=== PATIENT | male | born 1945 | race Caucasian/White ===

== ENCOUNTER 2022-05-25 16:36 | Inpatient (IN) ==
--- NOTE | 2022-05-25 16:49 | Emergency Department Note ---
SOB HPI <Emily Medrano, DO - Last Filed: 05/25/22 18:51> General Chief Complaint: Shortness of Breath/Dyspnea Stated Complaint: SOB Time Seen by Provider: 05/25/22 16:46 Source: patient Mode of arrival: ambulatory Limitations: no limitations and other (Patient does not appear to be dyspneic while seated and speaking. Speaks in full sentences.) History of Present Illness HPI Narrative: Narrative: Patient presents to the emerged part with complaint of shortness of breath. He has a history of COPD and sleep apnea. He reports he does not use a CPAP machine as he does not know how to use it. He has not use any of his COPD but the medications for this. He does report that he has been having trouble breathing for about a month and is getting much worse over the last couple of days. He said he has had trouble sleeping last couple nights but he denies any orthopnea. He does complain of bilateral lower extremity swelling. He denies any fever, chills, nausea, vomiting, diarrhea, dysuria, increased urinary frequency. Denies abdominal pain, chest pain. He is able while seated to speak in full sentences without difficulty. Just moving up from the wheelchair into the gurney though he did become short of breath. He reports at home his about 15 feet from his bedroom to the bathroom and that that distance gets very short of breath. He reports that he had an echocardiogram performed 1 day prior here at this facility. He is not currently on any diuretics. He denies previous history of UT or congestive heart failure. Related Data Home Medications Medication Instructions Recorded Confirmed simvastatin 20 mg tablet 20 mg PO HS 09/17/17 05/25/22 acetaminophen 325 mg tablet 325 mg PO ONCE PRN Pain 03/21/19 05/25/22 blood sugar diagnostic (Accu-Chek #10 ea 03/21/19 05/25/22 Starr Plus test strips) fluoxetine 10 mg capsule 10 mg PO QDAY 03/21/19 05/25/22 miconazole nitrate 2 % topical 1 applic topical BID 03/21/19 05/25/22 cream Previous Rx's Medication Instructions Recorded tamsulosin 0.4 mg capsule 0.4 mg PO BIDWMEAL #180 caps 08/03/20 Allergies Allergy/AdvReac Type Severity Reaction Status Date / Time lanolin Allergy Unknown Unknown Verified 05/25/22 16:38 tree nut Allergy Unknown Unknown Verified 05/25/22 16:38 nuts Allergy Unknown Unknown Uncoded 08/03/20 14:28 Review of Systems <Emily Medrano DO - Last Filed: 05/25/22 18:51> ROS ROS Narrative: Narrative: Please see HPI for pertinent positives and negatives for review of systems. All systems ED: reviewed and negative except as stated. PFSH <Emily Medrano DO - Last Filed: 05/25/22 18:51> Narrative Patient History Narrative: Narrative: Medical/Surgical/Family History All Active Problems (Updated 05/25/22 @ 18:51 by Emily Medrano DO) Postprandial distress syndrome (Acute) Obstructive sleep apnea (Acute) Leg edema, left (Acute) COPD (chronic obstructive pulmonary disease) (Acute) Cellulitis (Acute) Obstructive sleep apnea (Acute) Respiratory failure with hypoxia (Acute) Dependent edema (Acute) BPH w urinary obs/LUTS (Acute) Allergic conjunctivitis (Acute) Skin rash (Chronic) Hypertension (Chronic) Pedophilia (Chronic) Obesity (Chronic) Benign essential hypertension (Chronic) COLD (chronic obstructive lung disease) (Chronic) Umbilical hernia (Chronic) Insomnia (Chronic) Gastroesophageal reflux disease (Chronic) Low back pain (Chronic) Sensorineural hearing loss of combined types, bilateral (Chronic) Gout (Chronic) Personality disorder (Chronic) Anxiety (Chronic) Depressive disorder (Chronic) Diabetes mellitus (Chronic) Fatigue (Chronic) Diaphragmatic hernia (Chronic) Schatzki's ring (Chronic) MAXIMO (obstructive sleep apnea) (Chronic) Tinea cruris (Chronic) Squamous cell carcinoma of skin (Chronic) Benign prostatic hyperplasia without lower urinary tract symptoms (Chronic) Elevated PSA (Chronic) Acute exacerbation of chronic obstructive airways disease (Acute) Medical History (Updated 05/25/22 @ 18:51 by Emily Medrano DO) Acute exacerbation of chronic obstructive airways disease Anxiety Benign essential hypertension Benign prostatic hyperplasia without lower urinary tract symptoms COLD (chronic obstructive lung disease) Depressive disorder Diabetes mellitus Diaphragmatic hernia Elevated PSA Fatigue Gastroesophageal reflux disease Gout Hyperlipidemia Hypertension Insomnia Low back pain Obesity MAXIMO (obstructive sleep apnea) Pedophilia Personality disorder borderline and narcissistic features Schatzki's ring Sensorineural hearing loss of combined types, bilateral Skin rash Squamous cell carcinoma of skin Tinea cruris Umbilical hernia Surgical History History of colonoscopy (2014) Family History Other HTN (hypertension) Social History Smoking Status: Former smoker Alcohol Intake Frequency: does not drink Substance Use: does not use Exam <Emily Medrano DO - Last Filed: 05/25/22 18:51> Narrative Narrative: Narrative: General Limitations: no limitations and other (Patient does not appear to be dyspneic while seated and speaking. Speaks in full sentences.) General appearance: Present alert, in distress (Hypoxic with tachypnea.) and ob alena Head Head: Present atraumatic, normocephalic and normal inspection Eye Eye: Present normal appearance and EOMI; Absent scleral icterus or conjunctival injection ENT ENT: Present normal exam, normal oropharynx, mucous membranes moist and normal external ear exam Neck Neck: Present normal inspection, full ROM and trachea midline Chest Chest: Present normal inspection and symmetric chest wall rise Respiratory Respiratory: Present respiratory distress (Mild), prolonged expiratory phase and decreased breath sounds (Diffuse, with minimal movement.); Absent rales/crackles, wheezes, stridor or accessory muscle use Cardiovascular Cardiovascular: Present regular rate, normal rhythm and normal heart sounds Adbominal Abdominal: Present soft, hypoactive bowel sounds and other (Morbidly obese abdomen.); Absent distention, tenderness, guarding, rebound or rigidity Rectal Rectal: Present deferred : Present other (Deferred.) Extremities Extremities: Present normal inspection, pedal edema (1+ pitting bilaterally. Tissues are tight.) and pretibial edema (1+ pitting bilaterally, tissues tight.); Absent tenderness, joint swelling or cyanosis Neurological Neurological: Present alert, oriented X3 and CN II-XII intact Psychiatric Psychiatric: Present anxious (Mildly), serious, polite and pleasant Skin Skin: Present warm (WNL), dry and normal color Course <Emily Medrano DO - Last Filed: 05/25/22 18:51> Course Course Narrative: 182: ADRIÁN Chapa advises that patient walked back from the bathroom and was 83% on room air when he reached room. Put her back on the gurney and within a minute he was at 89 and 90%. However he is becoming hypoxic with ambulation. I think he is likely best served with admission. Still pending labs at this time. 183: Spoke with the ED charge nurse and advised her of the need to admit patient. She will work with the hothouse worker and see if we have a bed a vailable and get back to me. 1900: Care of patient transferred to Dr. Brownlee, oncoming ED physician all pending remainder of labs and COVID screening. ED nurse supervisor sample preparation is aware that I would like to admit this patient. Final diagnosis and disposition per Dr. Brownlee. Reevaluation(s) Reevaluation #1: Reevaluated, patient observed walking back from the bathroom which is approximately 60 feet from his room. He was not dyspneic was able to talk the entire distance. He has had some diuresis secondary to the Lasix. I believe he is likely suffering from a COPD exacerbation we will go ahead and start him on a azithromycin. I will give this orally as it is just as bioavailable as IV. Lab values still pending. Time: 18:02 Reevaluation #2: Reevaluated. Patient hypoxic at 83% while resting in bed. If he speaks it drops a little bit lower to 82%. He is placed on nasal cannula and titrated up to 3 L per nasal cannula to maintain oxygen saturation 94%. Advised patient that because of his hypoxic respiratory failure and COPD exacerbation I think he is best served by being admitted to the hospital. He is agreeable with this. I will order COVID screening. Time: 18:31 Vital Signs Vital signs: Vital Signs Temperature 97 F 05/25/22 16:40 Pulse Rate 62 05/25/22 16:40 Respiratory Rate 24 H 05/25/22 16:40 Blood Pressure 189/92 05/25/22 16:40 Pulse Oximetry (%) 86 L 05/25/22 16:40 Oxygen Delivery Method 05/25/22 16:40 Temperature 97 F 05/25/22 16:40 Pulse Rate 66 05/25/22 19:42 Respiratory Rate 21 05/25/22 19:42 Blood Pressure 168/76 05/25/22 18:31 Pulse Oximetry (%) 87 L 05/25/22 19:42 Oxygen Delivery Method 05/25/22 19:42 Oxygen Flow Rate (L/min) 3 05/25/22 19:42 <Taco Brownlee MD - Last Filed: 05/25/22 19:54> Consultations Consultation #1: I spoke to the hospitalist, Dr. Shearer. He agreed to admit this patient. Time: 19:53 Vital Signs Vital signs: Vital Signs Temperature 97 F 05/25/22 16:40 Pulse Rate 62 05/25/22 16:40 Respiratory Rate 24 H 05/25/22 16:40 Blood Pressure 189/92 05/25/22 16:40 Pulse Oximetry (%) 86 L 05/25/22 16:40 Oxygen Delivery Method 05/25/22 16:40 Temperature 97 F 05/25/22 16:40 Pulse Rate 66 05/25/22 19:42 Respiratory Rate 21 05/25/22 19:42 Blood Pressure 168/76 05/25/22 18:31 Pulse Oximetry (%) 87 L 05/25/22 19:42 Oxygen Delivery Method 05/25/22 19:42 Oxygen Flow Rate (L/min) 3 05/25/22 19:42 [facility] <Emily Medrano, DO - Last Filed: 05/25/22 18:51> [facility] Narrative Medical decision making narrative: Narrative: Patient presents emerged part with complaint of dyspnea for the last month but much worse the last 2 days. Please see HPI, physical exam, chart above for further details. On arrival patient did have lower extremity edema that was 1+ pitting and very tense. He does report that he does sit a lot on his computer and plays games. I think this is likely dependent edema as he does not have any evidence of cardiac abnormality on his EKG or his troponin. His BNP is not elevated. As result I think congestive heart failure is unlikely. He was given Decadron 10 mg IV push and DuoNeb 6 mL and his respiratory effort improved. He was able to actually walk all the way from his room (E3) to the bathroom which is approximately 60 feet and return and did not appear to be any respiratory distress I was able to speak in full sentences did not appear to have any increased work of breathing. However, he would desat to 83% when he got back on the monitor at the bedside. Placing him on 3 L per nasal cannula when getting back to 94%. He did receive DuoNeb 6 mL along with his Decadron. I did give him azithromycin 500 mg p.o. is a thought he might turn around we can get him discharged home. He did receive Lasix 40 mg on arrival case this was congestive heart failure. He did have an echocardiac cardiogram performed 1 day prior and there is no report of this at this time. I did review the images and unfortunately I am not certain how to read the echocardiogram appropriately. I think patient best served with admission to the hospital with submental oxygen and further care until he is stable enough to go home. He does have a history of obstructive sleep apnea and has been prescribed a CPAP machine but does not know how to wear it has not been wearing it. His chest x-ray did not show any infiltrate but did show that he has some pulmonary fibrosis. Lab results returned to this point in time show CBC with he will a slight low at 13.5 without a white count and RBCs that are normal. Immature Gran sites are elevated at 1.4% and monocytes are elevated 12.3%. The remainder of the differential is unremarkable. Absolute lymphocytes are low at 1.25. With immature Gran signs elevated at 0.08. VBG obtained did show pH is 7.34 with PCO2 elevated 52.8 slightly likely secondary underlying COPD, PO2 is elevated at 65, bicarb is slightly high at 28.4, total CO2 is slightly elevated 30.0 and venous O2 saturation is elevated at 91.0 with a base excess slightly high at 3.0 and lactic acid is normal at 0.8. I think the majority of the changes in his ABG are secondary to underlying history of COPD and being currently on supplemental oxygen with a drop. Serum chemistry unremarkable except for the BUN is elevated little bit 29 and glucose elevated at 114. Labs pending at the transfer of care include phosphorus, magnesium, total bilirubin, direct bilirubin, AST, ALT alkaline phosphatase, NT proBNP, total protein, albumin, globulin. For troponin high POC is normal at less than 0.02. Repeat troponin has not been ordered as patient has had symptoms for a month and worse last 2 days and does not appear to have an UT. Care patient will be transferred to Dr. Brownlee, [facility] ED physician at 1900 hrs. Final diagnoses and disposition per Dr. Brownlee if I have not already accomplish this by that time. Sepsis Sepsis Identified: No Differential Diagnosis Differential Diagnosis: CHF, UT, COPD exacerbation, PNA, dependent edema Medical Records Medical records reviewed: Yes I reviewed the patient's medical records. Lab Data Lab results reviewed: Yes I reviewed the patient's lab results. Result diagrams: 05/25/22 17:30 Labs: Lab Results 05/25/22 05/25/22 05/25/22 Range/Units 17:24 17:24 17:26 WBC (4.5-11.0) K/mcL RBC (4.63-6.08) M/mcL Hgb (13.7-17.5) g/dL Hct (40.1-51.0) % POC Hct 44.0 (41-55) MCV (80.0-100.0) fL MCH (26.0-34.0) pg MCHC (31.0-36.0) g/dL RDW (11.5-14.5) % Plt Count (140-440) K/mcL MPV (8.8-12.5) fL Immature Gran % (Auto) (0.0-0.5) % Neut % (Auto) (38.0-78.0) % Lymph % (Auto) (15.5-49.0) % [place] % (Auto) (1.0-12.0) % Eos % (Auto) (0.0-7.0) % Baso % (Auto) (0.0-2.0) % Lymph # (Auto) (1.50-4.80) K/mcL [place] # (Auto) (0.10-0.90) K/mcL Eos # (Auto) (0.00-0.70) K/mcL Baso # (Auto) (0.00-0.30) K/mcL Immature Gran # (0.00-0.05) K/mcl Absolute Neutrophils (1.80-8.00) K/mcL POC VBG pH 7.34 (7.32-7.42) POC VBG pCO2 at Temp 52.8 H (41-51) POC VBG pO2 65 H (25-40) POC VBG HCO3 28.4 H (24-28) POC VBG Total CO2 30.0 H (25-29) POC Venous O2 Sat 91.0 H (40-70) POC VBG Base Excess 3.0 H (-2-2) VBG Lactic Acid 0.8 (0.5-2) POC Sodium 137 (133-145) POC Potassium 4.4 (3.3-5.1) POC Chloride 101 (96-108) POC Total CO2 29.0 (22-30) POC BUN 29 H (6-20) POC Creatinine 0.8 (0.6-1.2) POC Glucose 114 H (70-105) POC WB Ioniz Calcium 1.17 (1.16-1.32) Phosphorus (2.5-4.5) mg/dL Magnesium (1.6-2.5) mg/dL Total Bilirubin (0.1-1.0) mg/dL Direct Bilirubin (0-0.3) mg/dL AST (<40) U/L ALT (<40) U/L Alkaline Phosphatase (39-117) U/L NT-Pro-B Natriuret Pep (<450.0) pg/mL Total Protein (5.9-8.4) gm/dL Albumin (3.2-5.2) gm/dL Globulin (2.2-3.7) gm/dL POC Troponin I < 0.02 (0.00-0.08) 05/25/22 05/25/22 Range/Units 17:30 17:30 WBC 5.6 (4.5-11.0) K/mcL RBC 4.64 (4.63-6.08) M/mcL Hgb 13.5 L (13.7-17.5) g/dL Hct 42.6 (40.1-51.0) % POC Hct (41-55) MCV 91.8 (80.0-100.0) fL MCH 29.1 (26.0-34.0) pg MCHC 31.7 (31.0-36.0) g/dL RDW 12.7 (11.5-14.5) % Plt Count 196 (140-440) K/mcL MPV 11.0 (8.8-12.5) fL Immature Gran % (Auto) 1.4 H (0.0-0.5) % Neut % (Auto) 58.2 (38.0-78.0) % Lymph % (Auto) 22.5 (15.5-49.0) % [place] % (Auto) 12.3 H (1.0-12.0) % Eos % (Auto) 4.7 (0.0-7.0) % Baso % (Auto) 0.9 (0.0-2.0) % Lymph # (Auto) 1.25 L (1.50-4.80) K/mcL [place] # (Auto) 0.68 (0.10-0.90) K/mcL Eos # (Auto) 0.26 (0.00-0.70) K/mcL Baso # (Auto) 0.05 (0.00-0.30) K/mcL Immature Gran # 0.08 H (0.00-0.05) K/mcl Absolute Neutrophils 3.23 (1.80-8.00) K/mcL POC VBG pH (7.32-7.42) POC VBG pCO2 at Temp (41-51) POC VBG pO2 (25-40) POC VBG HCO3 (24-28) POC VBG Total CO2 (25-29) POC Venous O2 Sat (40-70) POC VBG Base Excess (-2-2) VBG Lactic Acid (0.5-2) POC Sodium (133-145) POC Potassium (3.3-5.1) POC Chloride (96-108) POC Total CO2 (22-30) POC BUN (6-20) POC Creatinine (0.6-1.2) POC Glucose (70-105) POC WB Ioniz Calcium (1.16-1.32) Phosphorus 4.2 (2.5-4.5) mg/dL Magnesium 2.2 (1.6-2.5) mg/dL Total Bilirubin 0.3 (0.1-1.0) mg/dL Direct Bilirubin < 0.2 (0-0.3) mg/dL AST 17 (<40) U/L ALT 13 (<40) U/L Alkaline Phosphatase 74 (39-117) U/L NT-Pro-B Natriuret Pep 123.5 (<450.0) pg/mL Total Protein 6.5 (5.9-8.4) gm/dL Albumin 3.9 (3.2-5.2) gm/dL Globulin 2.6 (2.2-3.7) gm/dL POC Troponin I (0.00-0.08) ED POC Tests ED POC Tests: JAX - Influenza A Negative JAX - Influenza B Negative JAX - SARS Antigen Negative Radiology Data Radiology results reviewed: Yes I reviewed the patient's radiology results. Radiology results narrative: Portable chest x-ray shows no acute process. Patient does have stable moderate cardiomegaly without any pulmonary vascular congestion or infiltrates. He does appear to have some stable and unchanged pulmonary fibrosis. Please see radiology full report for further details. EKG Data EKG #1: EKG attestation: Yes I reviewed and interpreted this EKG. and Yes There are no EKG findings of acute coronary syndrome EKG results narrative: EKG obtained at 1714 hrs. interpreted by myself at 1717 hrs. shows sinus rhythm with bradycardia 50 bpm. There is left axis deviation. [place] interval is prolonged at 216 ms consistent with first-degree AV block. QRS duration is prolonged 155 ms there is a right bundle branch block present. QT and QTc are borderline prolonged at 447 ms and 4 and 41 ms respectively. T wave is negative in lead III and there is ST elevation in lead III of approximately 3 mm and lead aVF of approximately 1.5 mm there is no ST elevation in lead II. There are T wave inversions of lead V2 and V3. There is wandering baseline noted in the anterior and lateral V leads. 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 I do not have the EKG myself to visualize. No STEMI. <Taco Brownlee MD - Last Filed: 05/25/22 19:54> Lab Data Labs: Lab Results 05/25/22 05/25/22 05/25/22 Range/Units 17:24 17:24 17:26 WBC (4.5-11.0) K/mcL RBC (4.63-6.08) M/mcL Hgb (13.7-17.5) g/dL Hct (40.1-51.0) % POC Hct 44.0 (41-55) MCV (80.0-100.0) fL MCH (26.0-34.0) pg MCHC (31.0-36.0) g/dL RDW (11.5-14.5) % Plt Count (140-440) K/mcL MPV (8.8-12.5) fL Immature Gran % (Auto) (0.0-0.5) % Neut % (Auto) (38.0-78.0) % Lymph % (Auto) (15.5-49.0) % [place] % (Auto) (1.0-12.0) % Eos % (Auto) (0.0-7.0) % Baso % (Auto) (0.0-2.0) % Lymph # (Auto) (1.50-4.80) K/mcL [place] # (Auto) (0.10-0.90) K/mcL Eos # (Auto) (0.00-0.70) K/mcL Baso # (Auto) (0.00-0.30) K/mcL Immature Gran # (0.00-0.05) K/mcl Absolute Neutrophils (1.80-8.00) K/mcL POC VBG pH 7.34 (7.32-7.42) POC VBG pCO2 at Temp 52.8 H (41-51) POC VBG pO2 65 H (25-40) POC VBG HCO3 28.4 H (24-28) POC VBG Total CO2 30.0 H (25-29) POC Venous O2 Sat 91.0 H (40-70) POC VBG Base Excess 3.0 H (-2-2) VBG Lactic Acid 0.8 (0.5-2) POC Sodium 137 (133-145) POC Potassium 4.4 (3.3-5.1) POC Chloride 101 (96-108) POC Total CO2 29.0 (22-30) POC BUN 29 H (6-20) POC Creatinine 0.8 (0.6-1.2) POC Glucose 114 H (70-105) POC WB Ioniz Calcium 1.17 (1.16-1.32) Phosphorus (2.5-4.5) mg/dL Magnesium (1.6-2.5) mg/dL Total Bilirubin (0.1-1.0) mg/dL Direct Bilirubin (0-0.3) mg/dL AST (<40) U/L ALT (<40) U/L Alkaline Phosphatase (39-117) U/L NT-Pro-B Natriuret Pep (<450.0) pg/mL Total Protein (5.9-8.4) gm/dL Albumin (3.2-5.2) gm/dL Globulin (2.2-3.7) gm/dL POC Troponin I < 0.02 (0.00-0.08) 01/19/23 01/19/23 Range/Units 17:30 17:30 WBC 5.6 (4.5-11.0) K/mcL RBC 4.64 (4.63-6.08) M/mcL Hgb 13.5 L (13.7-17.5) g/dL Hct 42.6 (40.1-51.0) % POC Hct (41-55) MCV 91.8 (80.0-100.0) fL MCH 29.1 (26.0-34.0) pg MCHC 31.7 (31.0-36.0) g/dL RDW 12.7 (11.5-14.5) % Plt Count 196 (140-440) K/mcL MPV 11.0 (8.8-12.5) fL Immature Gran % (Auto) 1.4 H (0.0-0.5) % Neut % (Auto) 58.2 (38.0-78.0) % Lymph % (Auto) 22.5 (15.5-49.0) % [place] % (Auto) 12.3 H (1.0-12.0) % Eos % (Auto) 4.7 (0.0-7.0) % Baso % (Auto) 0.9 (0.0-2.0) % Lymph # (Auto) 1.25 L (1.50-4.80) K/mcL [place] # (Auto) 0.68 (0.10-0.90) K/mcL Eos # (Auto) 0.26 (0.00-0.70) K/mcL Baso # (Auto) 0.05 (0.00-0.30) K/mcL Immature Gran # 0.08 H (0.00-0.05) K/mcl Absolute Neutrophils 3.23 (1.80-8.00) K/mcL POC VBG pH (7.32-7.42) POC VBG pCO2 at Temp (41-51) POC VBG pO2 (25-40) POC VBG HCO3 (24-28) POC VBG Total CO2 (25-29) POC Venous O2 Sat (40-70) POC VBG Base Excess (-2-2) VBG Lactic Acid (0.5-2) POC Sodium (133-145) POC Potassium (3.3-5.1) POC Chloride (96-108) POC Total CO2 (22-30) POC BUN (6-20) POC Creatinine (0.6-1.2) POC Glucose (70-105) POC WB Ioniz Calcium (1.16-1.32) Phosphorus 4.2 (2.5-4.5) mg/dL Magnesium 2.2 (1.6-2.5) mg/dL Total Bilirubin 0.3 (0.1-1.0) mg/dL Direct Bilirubin < 0.2 (0-0.3) mg/dL AST 17 (<40) U/L ALT 13 (<40) U/L Alkaline Phosphatase 74 (39-117) U/L NT-Pro-B Natriuret Pep 123.5 (<450.0) pg/mL Total Protein 6.5 (5.9-8.4) gm/dL Albumin 3.9 (3.2-5.2) gm/dL Globulin 2.6 (2.2-3.7) gm/dL POC Troponin I (0.00-0.08) ED POC Tests ED POC Tests: JAX - Influenza A Negative JAX - Influenza B Negative JAX - SARS Antigen Negative Discharge Plan Patient/Caregiver Discharge Instructions Pt seen by HEALTHCARE MANAGEMENT/PA only: No Clinical Impression: Acute exacerbation of chronic obstructive airways disease, Obstructive sleep apnea, Respiratory failure with hypoxia, Dependent edema Patient Disposition: Xfer As Inpt ([facility]) Follow up with: Ba Kelsey ARNP [Primary Care Provider] - Prescriptions: No Action (DME) Accu-Chek Starr Plus test strp strip See Rx Instructions .ROUTE .MEDSUPPLY Qty: 10 Rx Instructions: As directed fluoxetine 10 mg capsule 10 mg PO QDAY miconazole nitrate 2 % cream 1 applic TOPICAL BID acetaminophen 325 mg tablet 325 mg PO ONCE PRN (Reason: Pain) simvastatin 20 MG tablet 20 mg PO HS tamsulosin 0.4 mg capsule 0.4 mg PO BIDWMEAL Qty: 180 3RF
[2022-05-25] MEDS ORDERED: ASPIRIN 81 MG TAB.CHEW CHEWED ONE (16:57)
[2022-05-25] MEDS ORDERED: DEXAMETHASONE 10 MG/ML VIAL IV ONE (16:59)
[2022-05-25] MEDS ORDERED: IPRATROPIUM/ALBUTEROL 3 ML AMPUL.NEB NEB ONE (16:59)
[2022-05-25] MEDS ORDERED: FUROSEMIDE 40 MG/4 ML VIAL IV ONE (17:02)
--- NOTE | 2022-05-25 17:19 | XRay Report ---
CLINICAL INFORMATION: Chest pain COMPARISON: 02/23/2022 TECHNIQUE: Portable FINDINGS: Moderate cardiomegaly is unchanged. Mediastinum and pulmonary vessels are normal. Moderate airspace disease in the left base is unchanged from the comparison exam nearly three months prior and likely represents organized fibrosis rather than unresolved infiltrate. There are no new pulmonary abnormalities. Mild atelectasis seen in the right base. No effusions. IMPRESSION: Moderate airspace disease in the left base is unchanged from exam nearly 3 months ago is likely organizing of fibrosis. No acute findings. Moderate stable cardiomegaly Interpreted and Authenticated by: Luis Oakes 05/25/22
[2022-05-25 17:40] LABS: POC Calcium, Ionized 1.17 (1.16-1.32); POC Creatinine 0.8 (0.6-1.2); POC Potassium 4.4 (3.3-5.1)
[2022-05-25] MEDS ORDERED: AZITHROMYCIN 250 MG TABLET PO ONE (18:03)
[2022-05-25 18:35] LABS: Basophils # (Auto) 0.05 K/mcL (0.00-0.30); Basophils % (Auto) 0.9 % (0.0-2.0); Eosinophils # (Auto) 0.26 K/mcL (0.00-0.70); Eosinophils % (Auto) 4.7 % (0.0-7.0); Hematocrit 42.6 % (40.1-51.0); Hemoglobin 13.5 g/dL (13.7-17.5); Lymphocytes # (Auto) 1.25 K/mcL (1.50-4.80); Lymphocytes % (Auto) 22.5 % (15.5-49.0); Mean Cell Volume 91.8 fL (80.0-100.0); Mean Corpuscular HGB Conc 31.7 g/dL (31.0-36.0); Monocytes # (Auto) 0.68 K/mcL (0.10-0.90); Monocytes % (Auto) 12.3 % (1.0-12.0); Neutrophils % (Auto) 58.2 % (38.0-78.0); Platelet Count 196 K/mcL (140-440); RBC 4.64 M/mcL (4.63-6.08); Red Cell Distribution Width 12.7 % (11.5-14.5); WBC 5.6 K/mcL (4.5-11.0)
[2022-05-25 18:50] LABS: proBNP 123.5 pg/mL (<450.0)
[2022-05-25 18:52] LABS: ALT/SGPT 13 U/L (<40); AST/SGOT 17 U/L (<40); Albumin 3.9 gm/dL (3.2-5.2); Alkaline Phosphatase 74 U/L (39-117); Bilirubin,Direct < 0.2 mg/dL (0-0.3); Bilirubin,Total 0.3 mg/dL (0.1-1.0); Globulin 2.6 gm/dL (2.2-3.7); Phosphorous 4.2 mg/dL (2.5-4.5)
--- NOTE | 2022-05-25 19:50 | Internal Med History&Physical ---
HPI History of Present Illness Patient information: Note initiated : 05/25/22 at 7:42 pm Service Date, if different from initiated Date: [] Patient: Andrea Owens a 76 y/o M admitted on for Shortness of breath. Chief Complaint: [] History of present illness: Mr. Owens is a 76 year old M Presents the ED with shortness of breath especially with exertion as well as wheezing and weakness. Is also developed a cough. Patient states he has been short of breath for some time since he started gaining weight last summer. But over the past week has been significantly worse. He can hardly walk across the room. He has had developed a cough productive of mild white sputum. Complains of being wheezy. Weak. Patient states that blood pressures been running high as well. He has a rescue inhaler at home but rarely uses it. He has not seen a pulmono logist in a long time. Patient denies fevers or chills. Patient denies chest pain. Patient states he has been much more sedentary since last summer. He had a recent echocardiogram which showed good EF moderate tricuspid regurgitation right ventricular that was dilated but had good systolic function. And only mild pulmonary hypertension. In the ED was evaluated diagnosed as acute exacerbation COPD. Chest x-ray showed no acute changes but likely pulmonary fibrosis unchanged from previous. He had mild CO2 retention but within normal limits pH on the VBG. Troponin and lactate were unremarkable. Low BNP. Blood pressure was elevated on admit. He dropped to the low 80s in the ED. He was started on antibiotics and nebulizers in the ED. Also given glucocorticoids. Rapid flu and COVID in the ED was negative. Review of Systems: Pertinent positives as above. Denies headache/fever/chills/nausea/vomiting/chest or abdominal pain/diarrhea. Remaining 10 point review of system reviewed negative PFSH PFSH All Active Problems (Updated 05/25/22 @ 18:51 by Emily Medrano DO) Postprandial distress syndrome (Acute) Obstructive sleep apnea (Acute) Leg edema, left (Acute) COPD (chronic obstructive pulmonary disease) (Acute) Cellulitis (Acute) Obstructive sleep apnea (Acute) Respiratory failure with hypoxia (Acute) Dependent edema (Acute) BPH w urinary obs/LUTS (Acute) Allergic conjunctivitis (Acute) Skin rash (Chronic) Hypertension (Chronic) Pedophilia (Chronic) Obesity (Chronic) Benign essential hypertension (Chronic) COLD (chronic obstructive lung disease) (Chronic) Umbilical hernia (Chronic) Insomnia (Chronic) Gastroesophageal reflux disease (Chronic) Low back pain (Chronic) Sensorineural hearing loss of combined types, bilateral (Chronic) Gout (Chronic) Personality disorder (Chronic) Anxiety (Chronic) Depressive disorder (Chronic) Diabetes mellitus (Chronic) Fatigue (Chronic) Diaphragmatic hernia (Chronic) Schatzki's ring (Chronic) MAXIMO (obstructive sleep apnea) (Chronic) Tinea cruris (Chronic) Squamous cell carcinoma of skin (Chronic) Benign prostatic hyperplasia without lower urinary tract symptoms (Chronic) Elevated PSA (Chronic) Acute exacerbation of chronic obstructive airways disease (Acute) Medical History (Updated 05/25/22 @ 18:51 by Emily Medrano DO) Acute exacerbation of chronic obstructive airways disease Anxiety Benign essential hypertension Benign prostatic hyperplasia without lower urinary tract symptoms COLD (chronic obstructive lung disease) Depressive disorder Diabetes mellitus Diaphragmatic hernia Elevated PSA Fatigue Gastroesophageal reflux disease Gout Hyperlipidemia Hypertension Insomnia Low back pain Obesity MAXIMO (obstructive sleep apnea) Pedophilia Personality disorder borderline and narcissistic features Schatzki's ring Sensorineural hearing loss of combined types, bilateral Skin rash Squamous cell carcinoma of skin Tinea cruris Umbilical hernia Surgical History History of colonoscopy (2013) Family History Other HTN (hypertension) Social History marital status: single service: Yes (1 yr [employer] [facility] branch: [employer] smoking status: Former smoker alcohol intake frequency: does not drink substance use type: does not use MEDS/ALLERGIES Home Medications and Allergies Home Medications Medication Instructions Recorded Confirmed Type simvastatin 20 mg tablet 20 mg PO HS 09/17/17 05/25/22 History acetaminophen 325 mg tablet 325 mg PO ONCE PRN Pain 03/21/19 05/25/22 History blood sugar diagnostic (Accu-Chek #10 ea 03/21/19 05/25/22 History Starr Plus test strips) fluoxetine 10 mg capsule 10 mg PO QDAY 03/21/19 05/25/22 History miconazole nitrate 2 % topical 1 applic topical BID 03/21/19 05/25/22 History cream tamsulosin 0.4 mg capsule 0.4 mg PO BIDWMEAL #180 caps 08/03/20 05/25/22 Rx Allergies Allergy/AdvReac Type Severity Reaction Status Date / Time lanolin Allergy Unknown Unknown Verified 05/25/22 16:38 tree nut Allergy Unknown Unknown Verified 05/25/22 16:38 nuts Allergy Unknown Unknown Uncoded 08/03/20 14:28 EXAM Constitutional Vitals: Temp Pulse Resp BP Pulse Ox O2 Del Method O2 Flow Rate 97 F 66 21 168/76 87 L 3 05/25/22 16:40 05/25/22 19:42 05/25/22 19:42 05/25/22 18:31 05/25/22 19:42 05/25/22 19:42 05/25/22 19:42 Exam: General: Alert, Awake, No acute Distress, obese Eyes/N/T: EOMI, PERRL, Head/Neck: neck supple, normocephalic atraumatic CV: RRR, No murmurs, normal s1/s2 Pulm: mild diminished at bases, mild rales left base, Abd: soft, nontender, +BS x4 Ext: no clubbing/cyanosis, b/l LE 1-2+ edema Neuro: Alert, no focal deficits, moves all extremities, CN 2-12 grossly intact, sensations intact b/l upper/lower Skin: warm/dry DATA Data Completed and Pending Labs: Labs from last 24 hours 05/25/22 05/25/22 05/25/22 17:30 17:30 17:26 WBC 5.6 RBC 4.64 Hgb 13.5 L Hct 42.6 POC Hct MCV 91.8 MCH 29.1 MCHC 31.7 RDW 12.7 Plt Count 196 MPV 11.0 Immature Gran % (Auto) 1.4 H Neut % (Auto) 58.2 Lymph % (Auto) 22.5 Whitley % (Auto) 12.3 H Eos % (Auto) 4.7 Baso % (Auto) 0.9 Lymph # (Auto) 1.25 L [place] # (Auto) 0.68 Eos # (Auto) 0.26 Baso # (Auto) 0.05 Immature Gran # 0.08 H Absolute Neutrophils 3.23 POC VBG pH POC VBG pCO2 at Temp POC VBG pO2 POC VBG HCO3 POC VBG Total CO2 POC Venous O2 Sat POC VBG Base Excess VBG Lactic Acid POC Sodium POC Potassium POC Chloride POC Total CO2 POC BUN POC Creatinine POC Glucose POC WB Ioniz Calcium Phosphorus 4.2 Magnesium 2.2 Total Bilirubin 0.3 Direct Bilirubin < 0.2 AST 17 ALT 13 Alkaline Phosphatase 74 NT-Pro-B Natriuret Pep 123.5 Total Protein 6.5 Albumin 3.9 Globulin 2.6 POC Troponin I < 0.02 05/25/22 05/25/22 17:24 17:24 WBC RBC Hgb Hct POC Hct 44.0 MCV MCH MCHC RDW Plt Count MPV Immature Gran % (Auto) Neut % (Auto) Lymph % (Auto) Whitley % (Auto) Eos % (Auto) Baso % (Auto) Lymph # (Auto) Whitley # (Auto) Eos # (Auto) Baso # (Auto) Immature Gran # Absolute Neutrophils POC VBG pH 7.34 POC VBG pCO2 at Temp 52.8 H POC VBG pO2 65 H POC VBG HCO3 28.4 H POC VBG Total CO2 30.0 H POC Venous O2 Sat 91.0 H POC VBG Base Excess 3.0 H VBG Lactic Acid 0.8 POC Sodium 137 POC Potassium 4.4 POC Chloride 101 POC Total CO2 29.0 POC BUN 29 H POC Creatinine 0.8 POC Glucose 114 H POC WB Ioniz Calcium 1.17 Phosphorus Magnesium Total Bilirubin Direct Bilirubin AST ALT Alkaline Phosphatase NT-Pro-B Natriuret Pep Total Protein Albumin Globulin POC Troponin I A/P Narrative A/P Narrative: A: *AECOPD (not on home O2): likely complicated by underlying fibrosis -has not been following with pulmology *Suspected pulonary fiboris: *Acute hypoxic respiratory failure: *MAXIMO: not using home cpap stating he does not tolerate his home mask *Obesity: BMI 38 *Hyperlipidemia: *Anxiety/depression: *DM2: *HTN: not on any home meds P: -O2 supp and wean as able -IS/Acapella, jose roberto nebs, RT -Corticosteroids (wean) -Empiric antibiotics -RVP pending -CT chest to eval for fibrosis -check ddimer -qhs cpap -Monitor BP closely and start appropriate medications as needed, as needed IV -SSI -PT/OT -TEDS -d/c with IH's -f/u with pulmonolgy -ppx: Lovenox Time Spent With Patient Time: Total time spent is greater than 50% in coordination of care (as documented) at patient's floor/unit and/or counseling patient: Initial: Total time with patient: 75 - 90 minutes
[2022-05-25] MEDS ORDERED: ENALAPRILAT 1.25 MG/ML VIAL IV PRN (22:07)
[2022-05-25] MEDS ORDERED: DEXTROSE 31 GM ORAL.SUSP PO PRN (22:07)
[2022-05-25] MEDS ORDERED: SENNOSIDES 1 TABLET PO PRN (22:07)
[2022-05-25] MEDS ORDERED: IPRATROPIUM/ALBUTEROL 3 ML AMPUL.NEB NEB PRN (22:07)
[2022-05-25] MEDS ORDERED: ONDANSETRON 4 MG/2 ML VIAL IV PRN (22:07)
[2022-05-25] MEDS ORDERED: POLYETHYLENE GLYCOL 3350 17 GM PACKET PO PRN (22:07)
[2022-05-25] MEDS ORDERED: DEXTROSE 50% 50 ML VIAL IV PRN (22:07)
[2022-05-25] MEDS ORDERED: POTASSIUM CHLORIDE 20 MEQ TABLET PO PRN ×2 (22:07)
[2022-05-25] MEDS ORDERED: MAGNESIUM SULFATE 2 GM/50 ML BAG IV PRN (22:07)
[2022-05-25] MEDS ORDERED: POTASSIUM CHLORIDE 40 MEQ in DEXTROSE 5% IN WATER 500 ML IV PRN (22:07)
[2022-05-25 22:40] LABS: Hemoglobin A1C 6.8 % Hgb (4.0-6.0)
[2022-05-25] MEDS: 0.9 % SODIUM CHLORIDE 10 ML SYRINGE IV SCH ×2 (23:11→23:35)
[2022-05-25] MEDS: SIMVASTATIN 20 MG TABLET PO SCH (23:12)
[2022-05-25] MEDS: MELATONIN 3 MG TABLET PO SCH (23:12)
[2022-05-25] MEDS: TAMSULOSIN 0.4 MG CAPSULE PO SCH (23:12)
[2022-05-25] MEDS: methylPREDNISolone SOD SUCC 125 MG/2 ML VIAL IV SCH (23:13)
[2022-05-25] MEDS: INSULIN LISPRO 1 UNIT/0.01 ML UNIT SQ SCH (23:14)
[2022-05-25] MEDS: hydrALAZINE 20 MG/ML VIAL IV PRN (23:35)
[2022-05-25] MEDS: BUDESONIDE 0.5 MG/2 ML AMPUL.NEB NEB SCH (23:40)
[2022-05-26] MEDS: TEMAZEPAM 15 MG CAPSULE PO PRN (02:15)
[2022-05-26] MEDS: IPRATROPIUM/ALBUTEROL 3 ML AMPUL.NEB NEB SCH ×4 (02:15→20:25)
[2022-05-26] MEDS: BUDESONIDE 0.5 MG/2 ML AMPUL.NEB NEB SCH ×2 (07:08→20:25)
[2022-05-26] MEDS: methylPREDNISolone SOD SUCC 125 MG/2 ML VIAL IV SCH (07:26)
[2022-05-26] MEDS: 0.9 % SODIUM CHLORIDE 10 ML SYRINGE IV SCH ×4 (07:28→23:39)
[2022-05-26 07:30] LABS: Basophils # (Auto) 0.01 K/mcL (0.00-0.30); Basophils % (Auto) 0.1 % (0.0-2.0); Eosinophils # (Auto) 0 K/mcL (0.00-0.70); Eosinophils % (Auto) 0 % (0.0-7.0); Hematocrit 43.7 % (40.1-51.0); Hemoglobin 13.9 g/dL (13.7-17.5); Lymphocytes # (Auto) 0.39 K/mcL (1.50-4.80); Lymphocytes % (Auto) 5.2 % (15.5-49.0); Mean Cell Volume 91.8 fL (80.0-100.0); Mean Corpuscular HGB Conc 31.8 g/dL (31.0-36.0); Mean Platelet Volume 10.9 fL (8.8-12.5); Monocytes # (Auto) 0.04 K/mcL (0.10-0.90); Monocytes % (Auto) 0.5 % (1.0-12.0); Neutrophils % (Auto) 93.3 % (38.0-78.0); Platelet Count 196 K/mcL (140-440); RBC 4.76 M/mcL (4.63-6.08); Red Cell Distribution Width 12.9 % (11.5-14.5); WBC 7.5 K/mcL (4.5-11.0)
[2022-05-26] MEDS: INSULIN LISPRO 1 UNIT/0.01 ML UNIT SQ SCH ×4 (07:55→20:53)
[2022-05-26 07:57] LABS: ALT/SGPT 15 U/L (<40); AST/SGOT 20 U/L (<40); Albumin/Globulin Ratio 1.4 (1.0-2.3); Alkaline Phosphatase 77 U/L (39-117); Bilirubin,Direct < 0.2 mg/dL (0-0.3); Bilirubin,Total 0.3 mg/dL (0.1-1.0); Blood Urea Nitrogen 28 mg/dL (8-23); Calcium 9.1 mg/dL (8.6-10.4); Carbon Dioxide 21 mmol/L (22-30); Chloride 95 mmol/L (96-108); Globulin 2.8 gm/dL (2.2-3.7); Glomerular Filtration Rate 73; Glucose 182 mg/dL (70-105); Lactate Dehydrogenase 243 U/L (135-225); Phosphorous 4.1 mg/dL (2.5-4.5); Triglycerides 43 mg/dL (<150); Uric Acid 7.4 mg/dL (2.5-8.0)
--- NOTE | 2022-05-26 08:27 | Internal Med Progress Note ---
SUBJECTIVE Subjective Patient information: Note initiated : 05/26/22 at 8:23 am Service Date, if different from initiated Date: [] Patient: Andrea Owens a 76 y/o M admitted on 05/25/22 for Shortness of breath. Chief Complaint: [] Interval history: History of present illness: Mr. Owens is a 76 year old M Presents the ED with shortness of breath especially with exertion as well as wheezing and weakness. Is also developed a cough. Patient states he has been short of breath for some time since he started gaining weight last summer. But over the past week has been significantly worse. He can hardly walk across the room. He has had developed a cough productive of mild white sputum. Complains of being wheezy. Weak. Patient states that blood pressures been running high as well. He has a rescue inhaler at home but rarely uses it. He has not seen a laundry agent in a long time. Patient denies fevers or chills. Patient denies chest pain. Patient states he has been much more sedentary since last summer. He had a recent echocardiogram which showed good EF moderate tricuspid regurgitation right ventricular that was dilated but had good systolic function. And only mild pulmonary hypertension. In the ED was evaluated diagnosed as acute exacerbation COPD. Chest x-ray showed no acute changes but likely pulmonary fibrosis unchanged from previous. He had mild CO2 retention but within normal limits pH on the VBG. Troponin and lactate were unremarkable. Low BNP. Blood pressure was elevated on admit. He dropped to the low 80s in the ED. He was started on antibiotics and nebulizers in the ED. Also given glucocorticoids. Rapid flu and COVID in the ED was negative. 05/26 Patient feeling improved today. Persistent cough. Shortness of breath with exertion but improving. Patient requiring 4 to 5 L nasal cannula. D-dimer low. Review of Systems: denies headache/fever/chills/nausea/vomiting/chest or abdominal pain/diarrhea. Otherwise see above. Constitutional Vitals: Vital Signs Temp Pulse Resp BP Pulse Ox O2 Del Method O2 Flow Rate 97.5 F 80 16 133/65 90 CPAP 4 05/26/22 07:54 05/26/22 07:11 05/26/22 07:54 05/26/22 07:54 05/26/22 07:54 05/26/22 07:54 05/26/22 07:11 Period Temp Pulse Resp BP Sys/Townsend Pulse Ox O2 Del Method O2 Flow Rate Last 24 Hr 97 F-98.1 F 60-90 16-24 106-189/47-105 86-96 Aerosol Mask-Room Air 3-5 Intake and Output 05/25/22 05/26/22 05/26/22 19:59 03:59 11:59 Intake Total 240 Output Total 715 325 Balance -475 -325 Weight 102.965 kg 99.79 kg Intake & Output: Intake & Output 05/25/22 05/26/22 05/26/22 19:59 03:59 11:59 Intake Total 240 Output Total 715 325 Balance -475 -325 Weight 102.965 kg 99.79 kg Intake: Oral 240 Output: Void Amount 715 325 Other: Urine Appearance Clear Clear Urine Color Yellow Bright Yellow Urine Odor Normal Exam: General: Alert, Awake, No acute Distress, obese Eyes/N/T: EOMI, , Head/Neck: neck supple, CV: RRR, No murmurs, Pulm: mild rhonchi/rales b/l, no wheezing Abd: soft, nontender, +BS x4 Ext: no clubbing/cyanosis, b/l LE 1+ edema Neuro: Alert, no focal deficits, moves all extremities, Skin: warm/dry OBJ DATA Labs 05/26/22 05:13 05/26/22 05:13 Labs: Abnormal Lab Results 05/26/22 05/26/22 05/25/22 05:13 05:13 17:30 Hgb 13.5 L Immature Gran % (Auto) 0.9 H 1.4 H Neut % (Auto) 93.3 H Lymph % (Auto) 5.[address] [facility] % (Auto) 0.5 L 12.3 H Lymph # (Auto) 0.[address] [facility] # (Auto) 0.04 L Immature Gran # 0.07 H 0.08 H POC VBG pCO2 at Temp POC VBG pO2 POC VBG HCO3 POC VBG Total CO2 POC Venous O2 Sat POC VBG Base Excess Chloride 95 L Carbon Dioxide 21 L Anion Gap 20.0 H POC BUN BUN 28 H Glucose 182 H POC Glucose Hemoglobin A1c Lactate Dehydrogenase 243 H 05/25/22 05/25/22 05/25/22 17:24 17:24 17:01 Hgb Immature Gran % (Auto) Neut % (Auto) Lymph % (Auto) [facility] % (Auto) Lymph # (Auto) [facility] # (Auto) Immature Gran # POC VBG pCO2 at Temp 52.8 H POC VBG pO2 65 H POC VBG HCO3 28.4 H POC VBG Total CO2 30.0 H POC Venous O2 Sat 91.0 H POC VBG Base Excess 3.0 H Chloride Carbon Dioxide Anion Gap POC BUN 29 H BUN Glucose POC Glucose 114 H Hemoglobin A1c 6.8 H Lactate Dehydrogenase Meds: Medications Acetaminophen (Acetaminophen 325 Mg Tablet) 650 mg PO Q6HP PRN; Protocol PRN Reason: Per Pain Protocol/Fever > 101 Albuterol/Ipratropium (Ipratropium/Albuterol 3 Ml Ampul.Neb) 3 ml NEB Q6HRT JOSE ROBERTO Last Admin: 05/26/22 07:06 Dose: 3 ml Albuterol/Ipratropium (Ipratropium/Albuterol 3 Ml Ampul.Neb) 3 ml NEB Q4HP PRN PRN Reason: Shortness Of Breath Budesonide (Budesonide 0.5 Mg/2 Ml Ampul.Neb) 0.5 mg NEB Q12 JOSE ROBERTO Last Admin: 05/26/22 07:08 Dose: 0.5 mg Dextrose (Dextrose 50% 50 Ml Vial) 0 ml IV UD PRN PRN Reason: Per Sliding Scale Diagnostic Test (Pha) (Accu-Chek 1 Each Strip) 1 each FS ACHS JOSE ROBERTO Last Admin: 05/26/22 07:26 Dose: 1 each Diphenhydramine HCl (Diphenhydramine 25 Mg Capsule) 25 mg PO HS ONE Stop: 05/26/22 21:01 Enalaprilat (Enalaprilat 1.25 Mg/Ml Vial) 0 mg IV Q2HP PRN PRN Reason: Hypertension Enoxaparin Sodium (Enoxaparin 40 Mg/0.4 Ml Syringe) 40 mg SQ DAILY JOSE ROBERTO Fluoxetine HCl (Fluoxetine Hcl 10 Mg Capsule) 10 mg PO QDAY [facility] Glucose (Dextrose 31 Gm Oral.Susp) 15 gm PO PRN PRN PRN Reason: Hypoglycemia Hydralazine HCl (Hydralazine 20 Mg/Ml Vial) 0 mg IV Q2HP PRN PRN Reason: Hypertension Last Admin: 05/25/22 23:35 Dose: 20 mg Azithromycin 500 mg/ Dextrose 250 mls @ 250 mls/hr IV Q24H [facility]; Protocol Stop: 05/27/22 09:59 Potassium Chloride 40 meq/ (Dextrose) 520 mls @ 130 mls/hr IV UD PRN PRN Reason: Potassium < 3 Magnesium Sulfate (Magnesium Sulfate) 2 gm in 50 mls @ 50 mls/hr IV UD PRN PRN Reason: Magnesium </= 1.6 Insulin Human Lispro (Insulin Lispro 1 Unit/0.01 Ml Unit) 0 unit SQ ACHS [facility]; Protocol Last Admin: 05/26/22 07:55 Dose: 2 units Melatonin (Melatonin 3 Mg Tablet) 3 mg PO QHS [facility] Last Admin: 05/25/22 23:12 Dose: 3 mg Methylprednisolone Sodium Succinate (Methylprednisolone Sod Succ 125 Mg/2 Ml Vial) 62.5 mg IV Q8 [facility] Last Admin: 05/26/22 07:26 Dose: 62.5 mg Ondansetron HCl (Ondansetron 4 Mg/2 Ml Vial) 4 mg IV Q4HP PRN PRN Reason: Nausea And Vomiting Polyethylene Glycol (Polyethylene Glycol 3350 17 Gm Packet) 17 gm PO DAILYP PRN PRN Reason: Constipation Potassium Chloride (Potassium Chloride 20 Meq Tablet) 40 meq PO UD PRN PRN Reason: Potssium is 3-3.5 Potassium Chloride (Potassium Chloride 20 Meq Tablet) 40 meq PO UD PRN PRN Reason: Potassium < 3 Senna (Sennosides 1 Tablet) 2 tab PO DAILYP PRN PRN Reason: Constipation Simvastatin (Simvastatin 20 Mg Tablet) 20 mg PO HS [facility] Last Admin: 05/25/22 23:12 Dose: 20 mg Sodium Chloride (0.9 % Sodium Chloride 10 Ml Syringe) 10 ml IV Q8 [facility] Last Admin: 05/26/22 07:28 Dose: 10 ml Tamsulosin HCl (Tamsulosin 0.4 Mg Capsule) 0.4 mg PO BIDCC [facility] Last Admin: 05/25/22 23:12 Dose: 0.4 mg Temazepam (Temazepam 15 Mg Capsule) 15 mg PO HSP PRN PRN Reason: Insomnia Last Admin: 05/26/22 02:15 Dose: 15 mg A/P Narrative A/P Narrative: A: *AECOPD (not on home O2): possibly complicated by underlying fibrosis, -has not been following with pulmology -flu/rsv/covid neg *Suspected pulmonary fibrosis: *Acute hypoxic respiratory failure: -on cpap o/n *MAXIMO: not using home cpap stating he does not tolerate his home mask *Obesity: BMI 38 *Hyperlipidemia: *Anxiety/depression: *DM2: a1c 6.8 *HTN: not on any home meds P: -O2 supp and wean as able -IS/Acapella, jose roberto nebs, RT -Corticosteroids (wean) -Empiric antibiotics -CT chest to better eval for possible fibrosis -qhs cpap -Monitor BP closely and start appropriate medications as needed, as needed IV -SSI -PT/OT -TEDS -d/c with home IH's & f/u with pulmonolgy -ppx: Lovenox Time Spent With Patient Time: Total time spent is greater than 50% in coordination of care (as documented) at patient's floor/unit and/or counseling patient: Subsequent: Total time with patient: 50 - 65 Minutes QUALITY Stroke Symptom Onset Unknown: No VTE Deep Vein Thrombosis/Pulmonary Embolism Present on Admission: No
[2022-05-26] MEDS: FLUoxetine HCL 10 MG CAPSULE PO SCH (08:50)
[2022-05-26] MEDS: TAMSULOSIN 0.4 MG CAPSULE PO SCH ×2 (08:50→18:13)
[2022-05-26] MEDS: ENOXAPARIN 40 MG/0.4 ML SYRINGE SQ SCH (08:50)
[2022-05-26] MEDS ORDERED: AZITHROMYCIN 500 MG in DEXTROSE 5% IN WATER 250 ML IV SCH (09:00)
--- NOTE | 2022-05-26 10:36 | Cat Scan Report ---
CLINICAL INFORMATION: COPD and hypoxia COMPARISON: None TECHNIQUE: 0.625 mm axial slices were obtained from the lung apices through the bases without intravenous contrast. 2.5 mm Sagittal, coronal and axial reformatted images were processed and reviewed at bone, lung and soft tissue windows. 7 mm axial MIP images were also reconstructed to optimize pulmonary nodule detection.The exam was performed using radiation dose optimization techniques including, but not limited to, automated exposure control, adjustment of the mA and/or kV according to patient size and use of iterative reconstruction technique. FINDINGS: Pulmonary parenchymal windows show moderate centrilobular emphysema featuring chronic bronchitis with elevated lung volumes and wall thickening/dilatation of the bronchi. There are multiple bullae predominantly within the upper lobes and also scattered within the lower and right middle lobes. Subsegmental atelectasis seen inferior right lower lobe and distal lingula along the cardiac border. There are no infiltrates or nodules. Pleural spaces are normal. Mediastinal windows show the heart is moderately enlarged with heavy calcific plaque in the coronary arteries particularly the proximal/mid LAD and mid circumflex. The noncontrast thoracic aorta is normal diameter with scattered calcific plaque. Central pulmonary arteries are enlarged main pulmonary diameter artery diameter of 3.5 cm suggesting pulmonary hypertension. There is no adenopathy in the mediastinal, hilar or axillary region. The esophagus is grossly normal. The thyroid is unremarkable. Bone windows show no focal osseous abnormalities. Soft tissues of the chest wall are unremarkable. Images through the upper abdomen show no abnormality. IMPRESSION: 1. Moderate centrilobular emphysema. Subsegmental atelectasis in the lingula and posterior right lower lobe. 2. Moderate central pulmonary artery enlargement compatible with pulmonary hypertension related to COPD 3. Heavy calcific plaque in the proximal mid LAD coronary arteries. This could indicate significant stenosis or occlusive disease. Consider stress testing. 4. No acute cardiopulmonary disease. Interpreted and Authenticated by: Luis Oakes 05/26/22
[2022-05-26] MEDS: ACETAMINOPHEN 325 MG TABLET PO PRN ×2 (10:46→21:46)
--- NOTE | 2022-05-26 11:55 | EKG ---
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 Measurements Intervals [place] Rate: 58 P: 17 [place]: 216 QRS: -9 QRSD: 155 T: -12 QT: 447 QTc: 441 Interpretive Statements Sinus rhythm FIRST DEGREE AV BLOCK Right bundle branch block Inferior infarct, age indeterminate Electronically Signed On 05-26-2022 11:55:31 PST by Luis Hunt M.D. /[id number]
[2022-05-26] MEDS: methylPREDNISolone SOD SUCC 40 MG/ML VIAL IV SCH ×2 (14:08→23:39)
[2022-05-26] MEDS: hydrALAZINE 20 MG/ML VIAL IV PRN (19:16)
[2022-05-26] MEDS: diphenhydrAMINE 25 MG CAPSULE PO SCH (20:53)
[2022-05-26] MEDS ORDERED: diphenhydrAMINE 25 MG CAPSULE PO ONE (21:00)
[2022-05-26] MEDS: MELATONIN 3 MG TABLET PO SCH (21:06)
[2022-05-26] MEDS: SIMVASTATIN 20 MG TABLET PO SCH (21:06)
[2022-05-27] MEDS: TEMAZEPAM 15 MG CAPSULE PO PRN (00:34)
[2022-05-27] MEDS: IPRATROPIUM/ALBUTEROL 3 ML AMPUL.NEB NEB SCH ×4 (01:21→21:16)
[2022-05-27 07:26] LABS: Blood Urea Nitrogen 27 mg/dL (8-23); Calcium 9.3 mg/dL (8.6-10.4); Carbon Dioxide 29 mmol/L (22-30); Chloride 98 mmol/L (96-108); Glomerular Filtration Rate 87; Glucose 170 mg/dL (70-105)
[2022-05-27] MEDS: BUDESONIDE 0.5 MG/2 ML AMPUL.NEB NEB SCH ×2 (07:58→21:16)
[2022-05-27] MEDS: INSULIN LISPRO 1 UNIT/0.01 ML UNIT SQ SCH ×4 (07:59→20:35)
[2022-05-27] MEDS: TAMSULOSIN 0.4 MG CAPSULE PO SCH ×2 (07:59→17:07)
[2022-05-27] MEDS: 0.9 % SODIUM CHLORIDE 10 ML SYRINGE IV SCH ×3 (08:00→20:36)
[2022-05-27] MEDS: methylPREDNISolone SOD SUCC 40 MG/ML VIAL IV SCH ×2 (08:00→20:34)
[2022-05-27] MEDS: FLUoxetine HCL 10 MG CAPSULE PO SCH (08:30)
[2022-05-27] MEDS: ENOXAPARIN 40 MG/0.4 ML SYRINGE SQ SCH (08:30)
--- NOTE | 2022-05-27 08:57 | Internal Med Progress Note ---
SUBJECTIVE Subjective Patient information: Note initiated : 05/27/22 at 8:49 am Service Date, if different from initiated Date: [] Patient: Andrea Owens a 76 y/o M admitted on 05/25/22 for Shortness of breath. Chief Complaint: [] Interval history: History of present illness: Mr. Owens is a 76 year old M Presents the ED with shortness of breath especially with exertion as well as wheezing and weakness. Is also developed a cough. Patient states he has been short of breath for some time since he started gaining weight last summer. But over the past week has been significantly worse. He can hardly walk across the room. He has had developed a cough productive of mild white sputum. Complains of being wheezy. Weak. Patient states that blood pressures been running high as well. He has a rescue inhaler at home but rarely uses it. He has not seen a small electric engine technician in a long time. Patient denies fevers or chills. Patient denies chest pain. Patient states he has been much more sedentary since last summer. He had a recent echocardiogram which showed good EF moderate tricuspid regurgitation right ventricular that was dilated but had good systolic function. And only mild pulmonary hypertension. In the ED was evaluated diagnosed as acute exacerbation COPD. Chest x-ray showed no acute changes but likely pulmonary fibrosis unchanged from previous. He had mild CO2 retention but within normal limits pH on the VBG. Troponin and lactate were unremarkable. Low BNP. Blood pressure was elevated on admit. He dropped to the low 80s in the ED. He was started on antibiotics and nebulizers in the ED. Also given glucocorticoids. Rapid flu and COVID in the ED was negative. 05/26 Patient feeling improved today. Persistent cough. Shortness of breath with exertion but improving. Patient requiring 4 to 5 L nasal cannula. D-dimer low. 05/27 Patient currently on 3 L nasal cannula with sats about 89-90. To his overall breathing has improved but still short of breath especially with any exertion. Cough present but improving. Review of Systems: denies headache/fever/chills/nausea/vomiting/chest or abdominal pain/diarrhea. Otherwise see above. Constitutional Vitals: Vital Signs Temp Pulse Resp BP Pulse Ox O2 Del Method O2 Flow Rate 97.5 F 78 16 136/44 95 Nasal Cannula 4 05/27/22 07:29 05/27/22 07:50 05/27/22 07:50 05/27/22 07:29 05/27/22 07:50 05/27/22 07:50 05/27/22 07:50 Period Temp Pulse Resp BP Sys/Townsend Pulse Ox O2 Del Method O2 Flow Rate Last 24 Hr 97.3 F-97.7 F 71-87 14-20 128-167/44-76 90-95 CPAP-Room Air 4-4 Intake and Output 05/26/22 05/27/22 05/27/22 19:59 03:59 11:59 Intake Total 300 Output Total 400 675 800 Balance -400 -375 -800 Weight 99.79 kg 102.33 kg Intake & Output: Intake & Output 05/26/22 05/27/22 05/27/22 19:59 03:59 11:59 Intake Total 300 Output Total 400 675 800 Balance -400 -375 -800 Weight 99.79 kg 102.33 kg Intake: Oral 300 Output: Void Amount 400 675 800 Other: Meal Lunch Percent of Meal Consumed 100% Urine Appearance Clear Clear Clear Urine Color Yellow Yellow Yellow Exam: General: Alert, Awake, No acute Distress, obese Eyes/N/T: EOMI, , Head/Neck: neck supple, CV: RRR, No murmurs, Pulm: decreasing mild rhonchi/rales b/l, no wheezing Abd: soft, nontender, +BS x4 Ext: no clubbing/cyanosis, b/l LE 1+ edema Neuro: Alert, no focal deficits, moves all extremities, Skin: warm/dry OBJ DATA Labs 05/26/22 05:13 05/27/22 05:30 Labs: Abnormal Lab Results 05/27/22 05/26/22 05/26/22 05:30 05:13 05:13 Hgb Immature Gran % (Auto) 0.9 H Neut % (Auto) 93.3 H Lymph % (Auto) 5.2 L [place] % (Auto) 0.5 L Lymph # (Auto) 0.39 L [place] # (Auto) 0.04 L Immature Gran # 0.07 H POC VBG pCO2 at Temp POC VBG pO2 POC VBG HCO3 POC VBG Total CO2 POC Venous O2 Sat POC VBG Base Excess Chloride 95 L Carbon Dioxide 21 L Anion Gap 20.0 H POC BUN BUN 27 H 28 H Glucose 170 H 182 H POC Glucose Hemoglobin A1c Lactate Dehydrogenase 243 H 05/25/22 05/25/22 05/25/22 17:30 17:24 17:24 Hgb 13.5 L Immature Gran % (Auto) 1.4 H Neut % (Auto) Lymph % (Auto) [place] % (Auto) 12.3 H Lymph # (Auto) 1.25 L [place] # (Auto) Immature Gran # 0.08 H POC VBG pCO2 at Temp 52.8 H POC VBG pO2 65 H POC VBG HCO3 28.4 H POC VBG Total CO2 30.0 H POC Venous O2 Sat 91.0 H POC VBG Base Excess 3.0 H Chloride Carbon Dioxide Anion Gap POC BUN 29 H BUN Glucose POC Glucose 114 H Hemoglobin A1c Lactate Dehydrogenase 05/25/22 17:01 Hgb Immature Gran % (Auto) Neut % (Auto) Lymph % (Auto) [place] % (Auto) Lymph # (Auto) [place] # (Auto) Immature Gran # POC VBG pCO2 at Temp POC VBG pO2 POC VBG HCO3 POC VBG Total CO2 POC Venous O2 Sat POC VBG Base Excess Chloride Carbon Dioxide Anion Gap POC BUN BUN Glucose POC Glucose Hemoglobin A1c 6.8 H Lactate Dehydrogenase Meds: Medications Acetaminophen (Acetaminophen 325 Mg Tablet) 650 mg PO Q6HP PRN; Protocol PRN Reason: Per Pain Protocol/Fever > 101 Last Admin: 05/26/22 21:46 Dose: 650 mg Albuterol/Ipratropium (Ipratropium/Albuterol 3 Ml Ampul.Neb) 3 ml NEB Q6HRT [facility] Last Admin: 05/27/22 07:58 Dose: 3 ml Albuterol/Ipratropium (Ipratropium/Albuterol 3 Ml Ampul.Neb) 3 ml NEB Q4HP PRN PRN Reason: Shortness Of Breath Azithromycin (Azithromycin 250 Mg Tablet) 500 mg PO DAILY [facility] Stop: 05/27/22 12:00 Last Admin: 05/27/22 08:30 Dose: 500 mg Budesonide (Budesonide 0.5 Mg/2 Ml Ampul.Neb) 0.5 mg NEB Q12 [facility] Last Admin: 05/27/22 07:58 Dose: 0.5 mg Dextrose (Dextrose 50% 50 Ml Vial) 0 ml IV UD PRN PRN Reason: Per Sliding Scale Diagnostic Test (Pha) (Accu-Chek 1 Each Strip) 1 each FS ACHS [facility] Last Admin: 05/27/22 07:19 Dose: 1 each Diphenhydramine HCl (Diphenhydramine 25 Mg Capsule) 25 mg PO HS [facility] Stop: 05/27/22 21:01 Last Admin: 05/26/22 20:53 Dose: 25 mg Enalaprilat (Enalaprilat 1.25 Mg/Ml Vial) 0 mg IV Q2HP PRN PRN Reason: Hypertension Enoxaparin Sodium (Enoxaparin 40 Mg/0.4 Ml Syringe) 40 mg SQ DAILY [facility] Last Admin: 05/27/22 08:30 Dose: 40 mg Fluoxetine HCl (Fluoxetine Hcl 10 Mg Capsule) 10 mg PO QDAY [facility] Last Admin: 05/27/22 08:30 Dose: 10 mg Glucose (Dextrose 31 Gm Oral.Susp) 15 gm PO PRN PRN PRN Reason: Hypoglycemia Hydralazine HCl (Hydralazine 20 Mg/Ml Vial) 0 mg IV Q2HP PRN PRN Reason: Hypertension Last Admin: 05/26/22 19:16 Dose: 10 mg Potassium Chloride 40 meq/ (Dextrose) 520 mls @ 130 mls/hr IV UD PRN PRN Reason: Potassium < 3 Magnesium Sulfate (Magnesium Sulfate) 2 gm in 50 mls @ 50 mls/hr IV UD PRN PRN Reason: Magnesium </= 1.6 Insulin Human Lispro (Insulin Lispro 1 Unit/0.01 Ml Unit) 0 unit SQ [facility]; Protocol Last Admin: 05/27/22 07:59 Dose: 2 units Melatonin (Melatonin 3 Mg Tablet) 3 mg PO QHS [facility] Last Admin: 05/26/22 21:06 Dose: 3 mg Methylprednisolone Sodium Succinate (Methylprednisolone Sod Succ 40 Mg/Ml Vial) 40 mg IV Q8 [facility] Last Admin: 05/27/22 08:00 Dose: 40 mg Ondansetron HCl (Ondansetron 4 Mg/2 Ml Vial) 4 mg IV Q4HP PRN PRN Reason: Nausea And Vomiting Polyethylene Glycol (Polyethylene Glycol 3350 17 Gm Packet) 17 gm PO DAILYP PRN PRN Reason: Constipation Potassium Chloride (Potassium Chloride 20 Meq Tablet) 40 meq PO UD PRN PRN Reason: Potssium is 3-3.5 Potassium Chloride (Potassium Chloride 20 Meq Tablet) 40 meq PO UD PRN PRN Reason: Potassium < 3 Senna (Sennosides 1 Tablet) 2 tab PO DAILYP PRN PRN Reason: Constipation Simvastatin (Simvastatin 20 Mg Tablet) 20 mg PO HS [facility] Last Admin: 05/26/22 21:06 Dose: 20 mg Sodium Chloride (0.9 % Sodium Chloride 10 Ml Syringe) 10 ml IV Q8 [facility] Last Admin: 05/27/22 08:00 Dose: 10 ml Tamsulosin HCl (Tamsulosin 0.4 Mg Capsule) 0.4 mg PO BIDCC [facility] Last Admin: 05/27/22 07:59 Dose: 0.4 mg Temazepam (Temazepam 15 Mg Capsule) 15 mg PO HSP PRN PRN Reason: Insomnia Last Admin: 05/27/22 00:34 Dose: 15 mg A/P Narrative A/P Narrative: A: *AECOPD (not on home O2): -has not been following with pulmology -flu/rsv/covid neg *Acute hypoxic respiratory failure: -on 3-4L NC *MAXIMO: not using home cpap stating he does not tolerate his home mask *Obesity: BMI 38 *Hyperlipidemia: *Anxiety/depression: *DM2: a1c 6.8 *HTN: not on any home meds P: -O2 supp and wean as able -IS/Acapella, jose roberto nebs, RT -Corticosteroids (wean) -Empiric antibiotics -qhs cpap, but pt not tolerating well -Monitor BP closely and start appropriate medications as needed, as needed IV -SSI -PT/OT -TEDS -d/c with home IH's & f/u with pulmonology -likely needs home O2, RT eval prior to d/c -ppx: Lovenox Time Spent With Patient Time: Total time spent is greater than 50% in coordination of care (as documented) at patient's floor/unit and/or counseling patient: Subsequent: Total time with patient: 35 - 49 minutes QUALITY Stroke Symptom Onset Unknown: No VTE Deep Vein Thrombosis/Pulmonary Embolism Present on Admission: No
[2022-05-27] MEDS ORDERED: AZITHROMYCIN 250 MG TABLET PO SCH (09:00)
[2022-05-27] MEDS: ACETAMINOPHEN 325 MG TABLET PO PRN (16:44)
[2022-05-27] MEDS: hydrALAZINE 20 MG/ML VIAL IV PRN (19:36)
[2022-05-27] MEDS: SIMVASTATIN 20 MG TABLET PO SCH (20:34)
[2022-05-27] MEDS: diphenhydrAMINE 25 MG CAPSULE PO SCH (21:49)
[2022-05-27] MEDS: MELATONIN 3 MG TABLET PO SCH (21:49)
[2022-05-28] MEDS: IPRATROPIUM/ALBUTEROL 3 ML AMPUL.NEB NEB SCH ×4 (00:26→18:08)
[2022-05-28] MEDS: 0.9 % SODIUM CHLORIDE 10 ML SYRINGE IV SCH ×3 (05:41→20:56)
[2022-05-28] MEDS: INSULIN LISPRO 1 UNIT/0.01 ML UNIT SQ SCH ×4 (06:47→20:56)
[2022-05-28] MEDS: BUDESONIDE 0.5 MG/2 ML AMPUL.NEB NEB SCH ×2 (07:51→23:58)
[2022-05-28] MEDS: methylPREDNISolone SOD SUCC 40 MG/ML VIAL IV SCH ×2 (08:24→20:56)
[2022-05-28] MEDS: FLUoxetine HCL 10 MG CAPSULE PO SCH (08:24)
[2022-05-28] MEDS: ENOXAPARIN 40 MG/0.4 ML SYRINGE SQ SCH (08:24)
[2022-05-28] MEDS: TAMSULOSIN 0.4 MG CAPSULE PO SCH ×2 (08:24→16:43)
[2022-05-28] MEDS: ACETAMINOPHEN 325 MG TABLET PO PRN ×2 (08:32→21:38)
--- NOTE | 2022-05-28 08:46 | Internal Med Progress Note ---
SUBJECTIVE Subjective Patient information: Note initiated : 05/28/22 at 8:45 am Service Date, if different from initiated Date: [] Patient: Andrea Owens a 76 y/o M admitted on 05/25/22 for Shortness of breath. Chief Complaint: [] Interval history: History of present illness: Mr. Owens is a 76 year old M Presents the ED with shortness of breath especially with exertion as well as wheezing and weakness. Is also developed a cough. Patient states he has been short of breath for some time since he started gaining weight last summer. But over the past week has been significantly worse. He can hardly walk across the room. He has had developed a cough productive of mild white sputum. Complains of being wheezy. Weak. Patient states that blood pressures been running high as well. He has a rescue inhaler at home but rarely uses it. He has not seen a electronic drafter in a long time. Patient denies fevers or chills. Patient denies chest pain. Patient states he has been much more sedentary since last summer. He had a recent echocardiogram which showed good EF moderate tricuspid regurgitation right ventricular that was dilated but had good systolic function. And only mild pulmonary hypertension. In the ED was evaluated diagnosed as acute exacerbation COPD. Chest x-ray showed no acute changes but likely pulmonary fibrosis unchanged from previous. He had mild CO2 retention but within normal limits pH on the VBG. Troponin and lactate were unremarkable. Low BNP. Blood pressure was elevated on admit. He dropped to the low 80s in the ED. He was started on antibiotics and nebulizers in the ED. Also given glucocorticoids. Rapid flu and COVID in the ED was negative. 05/26 Patient feeling improved today. Persistent cough. Shortness of breath with exertion but improving. Patient requiring 4 to 5 L nasal cannula. D-dimer low. 05/27 Patient currently on 3 L nasal cannula with sats about 89-90. To his overall breathing has improved but still short of breath especially with any exertion. Cough present but improving. 05/28 Currently on 1 to 2 L. Patient states breathing while exerting himself is improving. Cough continues. But improving. Patient feels wheezing is now gone. Weaning steroids. Continue weaning oxygen. Peripheral edema likely Lasix today. Review of Systems: denies headache/fever/chills/nausea/vomiting/chest or abdominal pain/diarrhea. Otherwise see above. Constitutional Vitals: Vital Signs Temp Pulse Resp BP Pulse Ox O2 Del Method O2 Flow Rate 97.4 F 67 20 147/77 93 Nasal Cannula 3 05/28/22 07:05 05/28/22 07:54 05/28/22 07:54 05/28/22 07:05 05/28/22 07:54 05/28/22 07:54 05/28/22 07:54 Period Temp Pulse Resp BP Sys/Townsend Pulse Ox O2 Del Method O2 Flow Rate Last 24 Hr 97.0 F-97.6 F 66-77 14-24 130-156/63-77 88-93 CPAP-Nasal C annula 3-4 Intake and Output 05/27/22 05/28/22 05/28/22 19:59 03:59 11:59 Intake Total 1140 240 290 Output Total 700 925 625 Balance 440 -685 -335 Weight 100.062 kg Intake & Output: Intake & Output 05/27/22 05/28/22 05/28/22 19:59 03:59 11:59 Intake Total 1140 240 290 Output Total 700 925 625 Balance 440 -685 -335 Weight 100.062 kg Intake: Oral 1140 290 Tube Feeding 240 Output: Void Amount 700 925 625 Other: Meal Dinner Percent of Meal Consumed 100% Feeding Ability Assist with Tray Set Up Urine Appearance Clear Clear Urine Color Yellow Yellow Yellow # Bowel Movements 1 Exam: General: Alert, Awake, No acute Distress, obese Eyes/N/T: EOMI, , Head/Neck: neck supple, CV: RRR, No murmurs, Pulm: mild rhonchi b/l, no wheezing Abd: soft, nontender, +BS x4 Ext: no clubbing/cyanosis, b/l LE 1+ edema Neuro: Alert, no focal deficits, moves all extremities, Skin: warm/dry OBJ DATA Labs 05/26/22 05:13 05/27/22 05:30 Labs: Abnormal Lab Results 05/27/22 05/26/22 05/26/22 05:30 05:13 05:13 Hgb Immature Gran % (Auto) 0.9 H Neut % (Auto) 93.3 H Lymph % (Auto) 5.2 L [place] % (Auto) 0.5 L Lymph # (Auto) 0.39 L [place] # (Auto) 0.04 L Immature Gran # 0.07 H POC VBG pCO2 at Temp POC VBG pO2 POC VBG HCO3 POC VBG Total CO2 POC Venous O2 Sat POC VBG Base Excess Chloride 95 L Carbon Dioxide 21 L Anion Gap 20.0 H POC BUN BUN 27 H 28 H Glucose 170 H 182 H POC Glucose Hemoglobin A1c Lactate Dehydrogenase 243 H 05/25/22 05/25/22 05/25/22 17:30 17:24 17:24 Hgb 13.5 L Immature Gran % (Auto) 1.4 H Neut % (Auto) Lymph % (Auto) [place] % (Auto) 12.3 H Lymph # (Auto) 1.25 L [place] # (Auto) Immature Gran # 0.08 H POC VBG pCO2 at Temp 52.8 H POC VBG pO2 65 H POC VBG HCO3 28.4 H POC VBG Total CO2 30.0 H POC Venous O2 Sat 91.0 H POC VBG Base Excess 3.0 H Chloride Carbon Dioxide Anion Gap POC BUN 29 H BUN Glucose POC Glucose 114 H Hemoglobin A1c Lactate Dehydrogenase 05/25/22 17:01 Hgb Immature Gran % (Auto) Neut % (Auto) Lymph % (Auto) [place] % (Auto) Lymph # (Auto) [place] # (Auto) Immature Gran # POC VBG pCO2 at Temp POC VBG pO2 POC VBG HCO3 POC VBG Total CO2 POC Venous O2 Sat POC VBG Base Excess Chloride Carbon Dioxide Anion Gap POC BUN BUN Glucose POC Glucose Hemoglobin A1c 6.8 H Lactate Dehydrogenase Meds: Medications Acetaminophen (Acetaminophen 325 Mg Tablet) 650 mg PO Q6HP PRN; Protocol PRN Reason: Per Pain Protocol/Fever > 101 Last Admin: 05/28/22 08:32 Dose: 650 mg Albuterol/Ipratropium (Ipratropium/Albuterol 3 Ml Ampul.Neb) 3 ml NEB Q6HRT [facility] Last Admin: 05/28/22 07:51 Dose: 3 ml Albuterol/Ipratropium (Ipratropium/Albuterol 3 Ml Ampul.Neb) 3 ml NEB Q4HP PRN PRN Reason: Shortness Of Breath Budesonide (Budesonide 0.5 Mg/2 Ml Ampul.Neb) 0.5 mg NEB Q12 [facility] Last Admin: 05/28/22 07:51 Dose: 0.5 mg Dextrose (Dextrose 50% 50 Ml Vial) 0 ml IV UD PRN PRN Reason: Per Sliding Scale Diagnostic Test (Pha) (Accu-Chek 1 Each Strip) 1 each FS ACHS [facility] Last Admin: 05/28/22 06:46 Dose: 1 each Enalaprilat (Enalaprilat 1.25 Mg/Ml Vial) 0 mg IV Q2HP PRN PRN Reason: Hypertension Enoxaparin Sodium (Enoxaparin 40 Mg/0.4 Ml Syringe) 40 mg SQ DAILY [facility] Last Admin: 05/28/22 08:24 Dose: 40 mg Fluoxetine HCl (Fluoxetine Hcl 10 Mg Capsule) 10 mg PO QDAY [facility] Last Admin: 05/28/22 08:24 Dose: 10 mg Glucose (Dextrose 31 Gm Oral.Susp) 15 gm PO PRN PRN PRN Reason: Hypoglycemia Hydralazine HCl (Hydralazine 20 Mg/Ml Vial) 0 mg IV Q2HP PRN PRN Reason: Hypertension Last Admin: 05/27/22 19:36 Dose: 10 mg Potassium Chloride 40 meq/ (Dextrose) 520 mls @ 130 mls/hr IV UD PRN PRN Reason: Potassium < 3 Magnesium Sulfate (Magnesium Sulfate) 2 gm in 50 mls @ 50 mls/hr IV UD PRN PRN Reason: Magnesium </= 1.6 Insulin Human Lispro (Insulin Lispro 1 Unit/0.01 Ml Unit) 0 unit SQ [facility]; Protocol Last Admin: 05/28/22 06:47 Dose: Not Given Melatonin (Melatonin 3 Mg Tablet) 3 mg PO QHS [facility] Last Admin: 05/27/22 21:49 Dose: 3 mg Methylprednisolone Sodium Succinate (Methylprednisolone Sod Succ 40 Mg/Ml Vial) 40 mg IV BID [facility] Last Admin: 05/28/22 08:24 Dose: 40 mg Ondansetron HCl (Ondansetron 4 Mg/2 Ml Vial) 4 mg IV Q4HP PRN PRN Reason: Nausea And Vomiting Polyethylene Glycol (Polyethylene Glycol 3350 17 Gm Packet) 17 gm PO DAILYP PRN PRN Reason: Constipation Potassium Chloride (Potassium Chloride 20 Meq Tablet) 40 meq PO UD PRN PRN Reason: Potssium is 3-3.5 Potassium Chloride (Potassium Chloride 20 Meq Tablet) 40 meq PO UD PRN PRN Reason: Potassium < 3 Senna (Sennosides 1 Tablet) 2 tab PO DAILYP PRN PRN Reason: Constipation Simvastatin (Simvastatin 20 Mg Tablet) 20 mg PO HS [facility] Last Admin: 05/27/22 20:34 Dose: 20 mg Sodium Chloride (0.9 % Sodium Chloride 10 Ml Syringe) 10 ml IV Q8 [facility] Last Admin: 05/28/22 05:41 Dose: 10 ml Tamsulosin HCl (Tamsulosin 0.4 Mg Capsule) 0.4 mg PO BIDCC [facility] Last Admin: 05/28/22 08:24 Dose: 0.4 mg Temazepam (Temazepam 15 Mg Capsule) 15 mg PO HSP PRN PRN Reason: Insomnia Last Admin: 05/27/22 00:34 Dose: 15 mg A/P Narrative A/P Narrative: A: *AECOPD (not on home O2): -has not been following with pulmonlogy -flu/rsv/covid neg *Acute hypoxic respiratory failure: -on 2-4L NC still, making slow progress *MAXIMO: not using home cpap stating he does not tolerate his home mask *Obesity: BMI 38 *Hyperlipidemia: *Anxiety/depression: *DM2: a1c 6.8 *HTN: not on any home meds *peripheral edema: IV lasix today P: -O2 supp and wean as able -IS/Acapella, jose roberto nebs, RT -Corticosteroids (wean) -Empiric antibiotics -qhs cpap, but pt not tolerating well -Monitor BP -SSI -PT/OT -TEDS -d/c with home IH's & f/u with pulmonology -likely needs home O2, RT eval prior to d/c -ppx: Lovenox Time Spent With Patient Time: Total time spent is greater than 50% in coordination of care (as documented) at patient's floor/unit and/or counseling patient: Subsequent: Total time with patient: 35 - 49 minutes QUALITY Stroke Symptom Onset Unknown: No VTE Deep Vein Thrombosis/Pulmonary Embolism Present on Admission: No
[2022-05-28] MEDS ORDERED: FUROSEMIDE 40 MG/4 ML VIAL IV SCH (10:00)
[2022-05-28] MEDS ORDERED: MICONAZOLE NITRATE TP SCH (10:05)
--- NOTE | 2022-05-28 12:08 | Discharge Summary ---
Discharge Provider Provider IMPORTANT FOLLOW-UP INFORMATION FOR PCP: Patient information: Note initiated : 05/28/22 at 12:06 pm Service Date, if different from initiated Date: [] Patient: Andrea Owens a 76 y/o M admitted on 05/25/22 for Shortness of breath. Chief Complaint: [] Date of admission: 05/25/22 22:06 Discharge date: 05/29/22 Primary care physician: Ba Kelsey Consults: 05/25/22 Consult to Physician [CONS] Stat Comment: Consulting Provider: Randy Shearer Reason For Exam: Physician to Consult COURSE Hospital Course Hospital course: History of present illness: Mr. Owens is a 76 year old M Presents the ED with shortness of breath especially with exertion as well as wheezing and weakness. Is also developed a cough. Patient states he has been short of breath for some time since he started gaining weight last summer. But over the past week has been significantly worse. He can hardly walk across the room. He has had developed a cough productive of mild white sputum. Complains of being wheezy. Weak. Patient states that blood pressures been running high as well. He has a rescue inhaler at home but rarely uses it. He has not seen a pulmonolo gist in a long time. Patient denies fevers or chills. Patient denies chest pain. Patient states he has been much more sedentary since last summer. He had a recent echocardiogram which showed good EF moderate tricuspid regurgitation right ventricular that was dilated but had good systolic function. And only mild pulmonary hypertension. In the ED was evaluated diagnosed as acute exacerbation COPD. Chest x-ray showed no acute changes but likely pulmonary fibrosis unchanged from previous. He had mild CO2 retention but within normal limits pH on the VBG. Troponin and lactate were unremarkable. Low BNP. Blood pressure was elevated on admit. He dropped to the low 80s in the ED. He was started on antibiotics and nebulizers in the ED. Also given glucocorticoids. Rapid flu and COVID in the ED was negative. 05/26 Patient feeling improved today. Persistent cough. Shortness of breath with exertion but improving. Patient requiring 4 to 5 L nasal cannula. D-dimer low. 05/27 Patient currently on 3 L nasal cannula with sats about 89-90. To his overall breathing has improved but still short of breath especially with any exertion. Cough present but improving. 05/28 Currently on 1 to 2 L. Patient states breathing while exerting himself is improving. Cough continues. But improving. Patient feels wheezing is now gone. Weaning steroids. Continue weaning oxygen. Peripheral edema likely Lasix today. 05/29 Patient stated he walked to the bathroom without feeling short of breath. Still on 1-1/2 L nasal cannula. Occasional cough. Decent urine output yesterday with Lasix for peripheral edema. A: *AECOPD (not on home O2): -has not been following with pulmonlogy *Acute hypoxic respiratory failure: *MAXIMO: not using home cpap stating he does not tolerate his home mask *Obesity: BMI 38 *Hyperlipidemia: *Anxiety/depression: *DM2: a1c 6.8 *HTN: not on any home meds *peripheral edema: IV lasix today P: -steroid taper -d/c with home IH's & f/u with pulmonology Discharge diagnosis: Hypoxia COPD obstructive sleep apnea Secondary discharge diagnosis: Obesity hyperlipidemia depression anxiety diabetes hypertension peripheral edema Time Spent with Patient Time attestation: Total time spent providing and/or coordinating discharge services: Time spent: Greater than 30 minutes EXAM Constitutional Vitals: Temp Pulse Resp BP Pulse Ox O2 Del Method O2 Flow Rate 97.4 F 67 20 147/77 93 Nasal Cannula 3 05/28/22 07:05 05/28/22 07:54 05/28/22 07:54 05/28/22 07:05 05/28/22 07:54 05/28/22 07:54 05/28/22 07:54 Discharge Plan Patient/Caregiver Discharge Instructions Activity: increase activity as tolerated Diet: Consistent Carbohydrate Activity Restrictions/Additional Instructions: referral to see pulmonology in 3-14 days for copd. Prescriptions: New prednisone 10 mg tablet 40 mg PO QDAY Qty: 1 0RF Rx Instructions: Take 40mg once daily for 2 days then 20mg daily for 2 days then 10mg daily x2 days then 5mg x2 days and stop fluticasone propion-salmeterol [Advair Diskus] 250-50 mcg/dose blister with device 1 inh inhalation BID Qty: 60 0RF albuterol sulfate 90 mcg/actuation HFA aerosol inhaler 2 puff inhalation Q6H PRN (Reason: shortness of breath or wheezing) Qty: 8.5 0RF Continued (DME) Accu-Chek Starr Plus test strp strip See Rx Instructions .ROUTE .MEDSUPPLY Qty: 10 Rx Instructions: As directed fluoxetine 10 mg capsule 10 mg PO QDAY miconazole nitrate 2 % cream 1 applic TOPICAL BID acetaminophen 325 mg tablet 325 mg PO ONCE PRN (Reason: Pain) simvastatin 20 MG tablet 20 mg PO HS tamsulosin 0.4 mg capsule 0.4 mg PO BIDWMEAL Qty: 180 3RF Other Ambulatory Orders: OT Discharge Order (Routine) Location: None Selected Ordered By: Randy Shearer Physical Therapy at Discharge - General (Routine) Location: None Selected Ordered By: Randy Shearer Follow Up Plan Follow up with: Ba Kelsey ARNP [Primary Care Provider] - Patient Disposition: Home Health Service Prognosis: Fair Overall status at discharge: patient is progressing back to baseline Discharge Orders: Discharge Order (Routine); Ordered 05/29/22 Ordered By: Randy Shearer QUALITY VTE Deep Vein Thrombosis/Pulmonary Embolism Present on Admission: No
[2022-05-28] MEDS: NYSTATIN CRM 1 DOSE TUBE TOPICAL SCH ×2 (14:22→20:02)
[2022-05-28] MEDS: hydrALAZINE 20 MG/ML VIAL IV PRN (16:21)
[2022-05-28] MEDS: SIMVASTATIN 20 MG TABLET PO SCH (20:56)
[2022-05-28] MEDS: MELATONIN 3 MG TABLET PO SCH (21:39)
[2022-05-29] MEDS: IPRATROPIUM/ALBUTEROL 3 ML AMPUL.NEB NEB SCH ×2 (00:38→06:45)
[2022-05-29] MEDS: TEMAZEPAM 15 MG CAPSULE PO PRN (02:14)
[2022-05-29] MEDS: 0.9 % SODIUM CHLORIDE 10 ML SYRINGE IV SCH (05:22)
[2022-05-29] MEDS: BUDESONIDE 0.5 MG/2 ML AMPUL.NEB NEB SCH (06:45)
--- NOTE | 2022-05-29 07:53 | Internal Med Progress Note ---
SUBJECTIVE Subjective Patient information: Note initiated : 05/29/22 at 7:50 am Service Date, if different from initiated Date: [] Patient: Andrea Owens a 76 y/o M admitted on 05/25/22 for Shortness of breath. Chief Complaint: [] Interval history: History of present illness: Mr. Owens is a 76 year old M Presents the ED with shortness of breath especially with exertion as well as wheezing and weakness. Is also developed a cough. Patient states he has been short of breath for some time since he started gaining weight last summer. But over the past week has been significantly worse. He can hardly walk across the room. He has had developed a cough productive of mild white sputum. Complains of being wheezy. Weak. Patient states that blood pressures been running high as well. He has a rescue inhaler at home but rarely uses it. He has not seen a healthcare account manager in a long time. Patient denies fevers or chills. Patient denies chest pain. Patient states he has been much more sedentary since last summer. He had a recent echocardiogram which showed good EF moderate tricuspid regurgitation right ventricular that was dilated but had good systolic function. And only mild pulmonary hypertension. In the ED was evaluated diagnosed as acute exacerbation COPD. Chest x-ray showed no acute changes but likely pulmonary fibrosis unchanged from previous. He had mild CO2 retention but within normal limits pH on the VBG. Troponin and lactate were unremarkable. Low BNP. Blood pressure was elevated on admit. He dropped to the low 80s in the ED. He was started on antibiotics and nebulizers in the ED. Also given glucocorticoids. Rapid flu and COVID in the ED was negative. 05/26 Patient feeling improved today. Persistent cough. Shortness of breath with exertion but improving. Patient requiring 4 to 5 L nasal cannula. D-dimer low. 05/27 Patient currently on 3 L nasal cannula with sats about 89-90. To his overall breathing has improved but still short of breath especially with any exertion. Cough present but improving. 05/28 Currently on 1 to 2 L. Patient states breathing while exerting himself is improving. Cough continues. But improving. Patient feels wheezing is now gone. Weaning steroids. Continue weaning oxygen. Peripheral edema likely Lasix today. 05/29 Patient stated he walked to the bathroom without feeling short of breath. Still on 1-1/2 L nasal cannula. Occasional cough. Decent urine output yesterday with Lasix for peripheral edema. Review of Systems: denies headache/fever/chills/nausea/vomiting/chest or abdominal pain/diarrhea. Otherwise see above. Constitutional Vitals: Vital Signs Temp Pulse Resp BP Pulse Ox O2 Del Method O2 Flow Rate 97.5 F 69 20 148/75 91 Nasal Cannula 1.5 05/29/22 07:31 05/29/22 07:31 05/29/22 07:31 05/29/22 07:31 05/29/22 07:31 05/29/22 07:31 05/29/22 07:31 Period Temp Pulse Resp BP Sys/Townsend Pulse Ox O2 Del Method O2 Flow Rate Last 24 Hr 97.3 F-98.5 F 67-81 16-24 125-155/64-82 88-98 CPAP-Nasal Mayelin adolfo 1.5-3 Intake and Output 05/28/22 05/29/22 05/29/22 19:59 03:59 11:59 Intake Total 1440 640 Output Total 700 650 425 Balance 740 -10 -425 Weight 98.656 kg Intake & Output: Intake & Output 05/28/22 05/29/22 05/29/22 19:59 03:59 11:59 Intake Total 1440 640 Output Total 700 650 425 Balance 740 -10 -425 Weight 98.656 kg Intake: Oral 1440 640 Output: Void Amount 700 650 425 Other: Meal Dinner Tuna salad Percent of Meal Consumed 100% 100% Feeding Ability Independent Independent Urine Appearance Clear Clear Clear Urine Color Yellow Yellow Yellow # Bowel Movements 1 Exam: General: Alert, Awake, No acute Distress, obese Eyes/N/T: EOMI, , Head/Neck: neck supple, CV: RRR, No murmurs, Pulm: minimal rhonchi b/l, no wheezing Abd: soft, nontender, +BS x4 Ext: no clubbing/cyanosis, mild b/l LE edema Neuro: Alert, no focal deficits, moves all extremities, Skin: warm/dry OBJ DATA Labs 05/26/22 05:13 05/27/22 05:30 Labs: Abnormal Lab Results 05/27/22 05/26/22 05:30 05:13 Chloride 95 L Carbon Dioxide 21 L Anion Gap 20.0 H BUN 27 H 28 H Glucose 170 H 182 H Lactate Dehydrogenase 243 H Meds: Medications Acetaminophen (Acetaminophen 325 Mg Tablet) 650 mg PO Q6HP PRN; Protocol PRN Reason: Per Pain Protocol/Fever > 101 Last Admin: 05/28/22 21:38 Dose: 650 mg Albuterol/Ipratropium (Ipratropium/Albuterol 3 Ml Ampul.Neb) 3 ml NEB Q6HRT COUNTS INCLUDE 234 BEDS AT THE [facility] Last Admin: 05/29/22 06:45 Dose: 3 ml Albuterol/Ipratropium (Ipratropium/Albuterol 3 Ml Ampul.Neb) 3 ml NEB Q4HP PRN PRN Reason: Shortness Of Breath Budesonide (Budesonide 0.5 Mg/2 Ml Ampul.Neb) 0.5 mg NEB Q12 COUNTS INCLUDE 234 BEDS AT THE [facility] Last Admin: 05/29/22 06:45 Dose: 0.5 mg Dextrose (Dextrose 50% 50 Ml Vial) 0 ml IV UD PRN PRN Reason: Per Sliding Scale Diagnostic Test (Pha) (Accu-Chek 1 Each Strip) 1 each FS ACHS COUNTS INCLUDE 234 BEDS AT THE [facility] Last Admin: 05/28/22 20:02 Dose: 1 each Enalaprilat (Enalaprilat 1.25 Mg/Ml Vial) 0 mg IV Q2HP PRN PRN Reason: Hypertension Enoxaparin Sodium (Enoxaparin 40 Mg/0.4 Ml Syringe) 40 mg SQ DAILY COUNTS INCLUDE 234 BEDS AT THE [facility] Last Admin: 05/28/22 08:24 Dose: 40 mg Fluoxetine HCl (Fluoxetine Hcl 10 Mg Capsule) 10 mg PO QDAY COUNTS INCLUDE 234 BEDS AT THE [facility] Last Admin: 05/28/22 08:24 Dose: 10 mg Glucose (Dextrose 31 Gm Oral.Susp) 15 gm PO PRN PRN PRN Reason: Hypoglycemia Hydralazine HCl (Hydralazine 20 Mg/Ml Vial) 0 mg IV Q2HP PRN PRN Reason: Hypertension Last Admin: 05/28/22 16:21 Dose: 10 mg Potassium Chloride 40 meq/ (Dextrose) 520 mls @ 130 mls/hr IV UD PRN PRN Reason: Potassium < 3 Magnesium Sulfate (Magnesium Sulfate) 2 gm in 50 mls @ 50 mls/hr IV UD PRN PRN Reason: Magnesium </= 1.6 Insulin Human Lispro (Insulin Lispro 1 Unit/0.01 Ml Unit) 0 unit SQ ACHS COUNTS INCLUDE 234 BEDS AT THE [facility]; Protocol Last Admin: 05/28/22 20:56 Dose: 4 units Melatonin (Melatonin 3 Mg Tablet) 3 mg PO QHS COUNTS INCLUDE 234 BEDS AT THE [facility] Last Admin: 05/28/22 21:39 Dose: 3 mg Methylprednisolone Sodium Succinate (Methylprednisolone Sod Succ 40 Mg/Ml Vial) 40 mg IV BID COUNTS INCLUDE 234 BEDS AT THE [facility] Last Admin: 05/28/22 20:56 Dose: 40 mg Nystatin (Nystatin Crm 1 Dose Tube) 1 dose TOPICAL BID COUNTS INCLUDE 234 BEDS AT THE [facility] Last Admin: 05/28/22 20:02 Dose: 1 dose Ondansetron HCl (Ondansetron 4 Mg/2 Ml Vial) 4 mg IV Q4HP PRN PRN Reason: Nausea And Vomiting Polyethylene Glycol (Polyethylene Glycol 3350 17 Gm Packet) 17 gm PO DAILYP PRN PRN Reason: Constipation Potassium Chloride (Potassium Chloride 20 Meq Tablet) 40 meq PO UD PRN PRN Reason: Potssium is 3-3.5 Potassium Chloride (Potassium Chloride 20 Meq Tablet) 40 meq PO UD PRN PRN Reason: Potassium < 3 Senna (Sennosides 1 Tablet) 2 tab PO DAILYP PRN PRN Reason: Constipation Simvastatin (Simvastatin 20 Mg Tablet) 20 mg PO HS COUNTS INCLUDE 234 BEDS AT THE [facility] Last Admin: 05/28/22 20:56 Dose: 20 mg Sodium Chloride (0.9 % Sodium Chloride 10 Ml Syringe) 10 ml IV Q8 COUNTS INCLUDE 234 BEDS AT THE [facility] Last Admin: 05/29/22 05:22 Dose: 10 ml Tamsulosin HCl (Tamsulosin 0.4 Mg Capsule) 0.4 mg PO BIDCC COUNTS INCLUDE 234 BEDS AT THE [facility] Last Admin: 05/28/22 16:43 Dose: 0.4 mg Temazepam (Temazepam 15 Mg Capsule) 15 mg PO HSP PRN PRN Reason: Insomnia Last Admin: 05/29/22 02:14 Dose: 15 mg A/P Narrative A/P Narrative: A: *AECOPD (not on home O2): -has not been following with pulmonlogy -flu/rsv/covid neg *Acute hypoxic respiratory failure: -on 1.5L *MAXIMO: not using home cpap stating he does not tolerate his home mask *Obesity: BMI 38 *Hyperlipidemia: *Anxiety/depression: *DM2: a1c 6.8 *HTN: not on any home meds *peripheral edema: IV lasix today P: -O2 supp and wean as able -IS/Acapella, jose roberto nebs, RT -Corticosteroids (wean) -Empiric antibiotics -qhs cpap, but pt not tolerating well -Monitor BP -SSI -PT/OT -TEDS -d/c with home IH's & f/u with pulmonology -likely needs home O2, RT eval prior to d/c if going home instead of to SNF -ppx: Lovenox Time Spent With Patient Time: Total time spent is greater than 50% in coordination of care (as documented) at patient's floor/unit and/or counseling patient: QUALITY Stroke Symptom Onset Unknown: No VTE Deep Vein Thrombosis/Pulmonary Embolism Present on Admission: No
[2022-05-29] MEDS: ENOXAPARIN 40 MG/0.4 ML SYRINGE SQ SCH (08:22)
[2022-05-29] MEDS: FLUoxetine HCL 10 MG CAPSULE PO SCH (08:23)
[2022-05-29] MEDS: INSULIN LISPRO 1 UNIT/0.01 ML UNIT SQ SCH ×2 (08:24→12:00)
[2022-05-29] MEDS: NYSTATIN CRM 1 DOSE TUBE TOPICAL SCH (08:24)
[2022-05-29] MEDS: TAMSULOSIN 0.4 MG CAPSULE PO SCH (08:24)
[2022-05-29] MEDS ORDERED: predniSONE 20 MG TABLET PO SCH (09:00)
== END 2022-05-29 14:15 | disposition home health service (06) | DRG 189 ==
LOC: ED 16:36 → MEDSUR 22:06
PROVIDERS: ADMIT Internal Medicine; ATTEND Internal Medicine